=== PATIENT | female | born 1960 | race Caucasian/White ===

== ENCOUNTER 2016-12-17 15:54 | Emergency (ER) | payer BC ==
[2015-01-10 23:16] VITALS: BMI 19.7
[~2016-12-17 15:54] MED LIST: MEDROL DOSE PACK4 MG PO; TYLENOL W/CODEI1 TAB PO
[2016-12-17 19:00] LABS: BASOPHILS 0.2 % (0.0-2.0); EOSINOPHILS 2.5 % (0-7); HEMATOCRIT 44.5 % (36.0-48.0); IMMATURE GRANULOCYTES 0.4 % (0-5); LYMPHOCYTES 11.6 % (15-50); MCH 32.1 pg (26.0-34.0); MCHC 33.7 g/dL (31.0-37.0); MCV 95.1 fL (80.0-100.0); MEAN PLATELET VOLUME 11.1 fL (7.4-10.4); MONOCYTES 6.7 % (2-11); NEUTROPHILS 78.6 % (40-80); RBC 4.68 10x6/uL (4.00-5.40); RDW 12.4 % (11.5-14.5); WBC 4.8 10x3/uL (4.8-10.8)
[2016-12-17 19:02] LABS: PLATELET COUNT 124 10x3/uL (130-400)
[2016-12-17 19:17] LABS: ALBUMIN 3.3 g/dL (3.4-5.0); ALKALINE PHOSPHATASE 90 U/L (46-116); ALT (SGPT) 28 U/L (10-68); BILIRUBIN - TOTAL 0.36 mg/dL (0.2-1.3); CALC OSMOLALITY 270 mosm/kg (275-300); CALCIUM 8.3 mg/dL (8.5-10.1); CARBON DIOXIDE 26.8 mmol/L (21.0-32.0); CHLORIDE - SERUM 100 mmol/L (98-107); CREATININE - SERUM 0.6 mg/dL (0.6-1.3); POTASSIUM - SERUM 3.3 mmol/L (3.5-5.1); PROTEIN - SERUM 7.2 g/dL (6.4-8.2); SODIUM 135 mmol/L (136-145); UREA NITROGEN 16 mg/dL (7-18); eGFR NON AFRICAN AMERICAN > 90 mL/min (90-120)
[2016-12-17 19:18] LABS: GLUCOSE 96 mg/dL (74-106)
== END 2016-12-17 21:10 | disposition home or self-care (01) ==
LOC: D.ER 15:54
PROVIDERS: Physician Assistant Medical
DX: E86.0 Dehydration (principal); M54.5 Low back pain; F17.200 Nicotine dependence, unspecified, uncomplicated

== ENCOUNTER → 2018-11-23 07:37 | Outpatient (CLI) | payer BC ==
[2015-01-10 23:16] VITALS: BMI 19.7
== END | disposition home or self-care (01) ==
LOC: D.MRI 07:37
PROVIDERS: ATTEND Family Medicine
DX: G44.89 Other headache syndrome (principal)